=== PATIENT | female | born 1960 | race African-American/Black ===

== ENCOUNTER 2021-04-28 22:47 | Emergency (ER) | payer OTHER ==
[~2021-04-28] VITALS: Ht 157.5 cm; Wt 72.6 kg
[~2021-04-28 22:47] MED LIST: ADVAIR 250-501 EACH INH; COMPAZINE25 MG RECTAL; COMPAZINE5 MG; IMITREX; IMITREX 50 MG T50 M1 PO; LISINOPRIL20 MG PO; LORCET 5-325 M1 EACH PO; LORCET PLUS 7.51 TA1; MOBIC7.5 MG PO; PERCOCET 5-3251 EACH; PERCOCET 5-3251 EACH PO; PREVACID; TRAZODONE HCL100 MG PO; ZOFRAN; ZOFRAN4 MG
[2021-04-28 22:48] VITALS: BP 101/60
[2021-04-28] MEDS ORDERED: DOXEPIN HC10 MG/1 ML PO (23:00)
[2021-04-28] MEDS ORDERED: KETOCONAZOLE 2200 MG PO (23:01)
[2021-04-28] MEDS ORDERED: PERCOCET 10-321 EAC1 PO (23:02)
[2021-04-29] MEDS ORDERED: PREDNISONE50 MG PO (01:42)
== END 2021-04-29 03:00 | disposition home or self-care (01) ==
LOC: ER 22:47
DX: L30.9 Dermatitis, unspecified (principal); M19.90 Unspecified osteoarthritis, unspecified site; G43.909 Migraine, unspecified, not intractable, without status migrainosus; I10 Essential (primary) hypertension; F17.210 Nicotine dependence, cigarettes, uncomplicated; F12.90 Cannabis use, unspecified, uncomplicated; Z90.710 Acquired absence of both cervix and uterus; Z79.899 Other long term (current) drug therapy; Z79.891 Long term (current) use of opiate analgesic; Z88.5 Allergy status to narcotic agent; Z88.8 Allergy status to other drugs, medicaments and biological substances; Z88.6 Allergy status to analgesic agent; Z88.1 Allergy status to other antibiotic agents; Z91.041 Radiographic dye allergy status